=== PATIENT | female | born 1990 | race Caucasian/White ===

== ENCOUNTER 2019-12-23 15:49 | Outpatient (CLI) | payer OTHER, SELFPAY ==
--- NOTE | ~2019-12-23 | CT_ITS ---
EXAMINATION: CT sinus wo con DATE: 12/23/2019 16:08 INDICATION: Nasal polyps. Asthma. Chronic sinusitis. TECHNIQUE: Computed tomography (CT) of the paranasal sinuses was performed without contrast. Iterativ e reconstruction technique was employed. Exam dose: 282.66 mGy-cm total exam DLP. COMPARISON: 05/20/2011 CT brain FINDINGS: There is rightward deviation of the nasal septum. There is very prominent swelling of the nasal turbinates bilaterally. There is prominent bilateral mi ddle nasal turbinate olga lidia bullosa as well as interlamellar cell. There is extensive opacification o f the left middle nasal turbinate olga lidia bullosa. There is mild mucoperiosteal thickening of the maxillary sinuses including the maxillary ostium bilat erally. There is patchy opacification of ethmoid air cells, primarily anteriorly. The frontal sinuses are wel l-developed and largely normally aerated. There is mild focal mucoperiosteal thickening of both sphenoid sinuses. The mastoid air cells are normally developed and aerated bilaterally. Middle and inner ear apparatus appear normal bilaterally. IMPRESSION: Prominent soft tissue swelling of the nasal turbinates Prominent olga lidia bullosa and interlamellar cell of both middle nasal turbinates, partially opacified on the left Soft tissue thickening of both maxillary ostia Mild mucosal periosteal thickening of both maxillary and sphenoid sinuses and patchy opacification of the ethmoids, primarily anteriorly Reviewed, dictated and finalized at [facility]. Reviewed, dictated and finalized at [facility]. [facility] IMPRESSION: Prominent soft tissue swelling of the nasal turbinates Prominent olga lidia bullosa and interlamellar cell of both middle nasal turbinates , partially opacified on the left Soft tissue thickening of both maxillary ostia Mild mucosal periosteal thickening of both maxillary and sphenoid sinuses and p atchy opacification of the ethmoids, primarily anteriorly
== END 2019-12-23 15:50 ==
LOC: MICIMG 15:53
PROVIDERS: Visit Provider Otolaryngology
DX: J33.9 Nasal polyp, unspecified (principal)
CPT/HCPCS: 70486

== ENCOUNTER → 2021-01-18 01:56 | Outpatient (CLI) | payer OTHER, SELFPAY ==
[2021-01-19 08:28] LABS: SARS-CoV-2 RNA PCR Negative
== END ==
PROVIDERS: PCP Family Medicine; Visit Provider Otolaryngology
DX: Z01.812 Encounter for preprocedural laboratory examination (principal); Z20.822 Contact with and (suspected) exposure to COVID-19
CPT/HCPCS: C9803; U0003; U0005

== ENCOUNTER 2021-01-21 01:28 | Day surgery (SDC) | payer OTHER, SELFPAY ==
[2021-01-15 07:58] VITALS: BMI 40.0
[2021-01-21] VITALS (8 sets, daily range): BP systolic 116–150; BP diastolic 59–92; PULSE 68–76; RESP 10–16; TEMP 36.3–36.7; O2SAT 96–100
--- NOTE | 2021-01-21 08:32 | WPDHPUPDATE1 ---
History and Physical Update Update Date/Time: 01/21/21 08:32 History and Physical has been reviewed, including an updated exam of the patient. There are NO changes in the patient's condition. Risks, benefits, and alternatives have been discussed and questions answered. Patient agrees to proceed with procedure.
--- NOTE | 2021-01-21 08:44 | WPDANESEPPF ---
Anes - Initial Pre Proc Eval Procedure: Operation Date: 01/21/21 09:45 Proposed Procedures p Bilateral Frontal Sinusotomy, Bilateral Total Ethmoidectomy, Bilateral Sphenoidotomy, Bilateral Maxillary Antrostomy, Bilateral Turbinate Reduction, Bilateral Leisa Bullosa Reduction, CT Guided Fusion Protocol - Jae Rincon MD s Septoplasty - Jae Rincon MD Date/Time: 01/21/21 08:44 Surgeon: Jae Rincon MD Pre Op Diagnosis: Chronic Maxillary Sinusitis Patient Data Age: 30 Gender: F Height: 5 ft 7 in Weight: 115.9 kg Allergies Allergy/AdvReac Type Severity Reaction Status Date / Time No Known Allergies Allergy Verified 01/21/21 08:05 Home Medications Medication Instructions Recorded Confirmed Type albuterol sulfate 2 inh INHALATION BID PRN 01/15/21 01/15/21 History buspirone 15 mg PO BID 01/15/21 01/21/21 History citalopram 40 mg PO DAILY 01/15/21 01/21/21 History fluticasone propion-salmeterol 1 inh INHALATION BID 01/15/21 01/21/21 History [Wixela Inhub] loratadine [Claritin] 10 mg PO DAILY 01/15/21 01/21/21 History Patient hx anesthesia problems: none Family hx anesthesia problems: none [facility] Past Medical History Medical History Asthma Depression Morbid obesity Social History Social History Smoking status: Never smoker Alcohol intake: never Living arrangements: with family Spiritual care concerns: No Anes - Eval Final PreProcedure Day of Procedure 01/21/21 08:44 Patient weight: morbidly obese Heart: regular rate and rhythm Lungs: clear to auscultation Airway: Mallampati scale class II Neurological: alert and oriented Last oral intake: >/= 8 hours ASA classification: III Emergent: no Anesthetic plan: proceed Anesthesia type and monitoring: general ETT and standard monitoring Informed Consent: The patient's anesthetic plan and its attendant risks and benefits were discussed with the patient/family/POA. Questions were solicited and answers provided to the satisfaction of the patient/family/POA.
[2021-01-21] MEDS: ACETAMINOPHEN 500 MG TABLET 1000 MG PO (08:56)
[2021-01-21] MEDS: SCOPOLAMINE 1.5 MG PATCH TRANSDERM (08:57)
[2021-01-21] MEDS: LACTATED RINGERS 1,000 ML 30 ML IV CONT ×2 (09:04→11:35)
[2021-01-21] MEDS: OXYMETAZOLINE HCL 0.05% NAS 15 ML BTL (*BKC) 1 SPRAY NASAL (09:08)
[2021-01-21] MEDS: ceFAZolin 2 GM/D5W 50 ML 2 GM/50 ML BAG IVPB (09:40)
[2021-01-21] MEDS: LIDO 1%/EPINEPHRINE 1:100,000 50 ML VIAL INFILTRATE (09:49)
--- NOTE | 2021-01-21 11:26 | PM.PROC ---
Procedure Note - Detailed Date of procedure: 01/21/21 Pre-op diagnosis: Chronic Maxillary Sinusitis Chronic pansinusitis with polyposis Post-op diagnosis: same Procedure performed: Bilateral frontal sinusotomy, total ethmoidectomy, sphenoidotomy with tissue removal, maxillary antrostomy with tissue removal, image guided surgery Description of procedure: On the date of procedure the patient was met in the preoperative area and risk and benefits of the procedure reviewed with the patient as documented in the H&P and they elected to proceed with surgery. Patient was brought back to the operating room by the anesthesia team and underwent general endotracheal anesthesia. Once an adequate plane of anesthesia was obtained a timeout was performed to assure the patient identification the patient here to be performed were correct. They were.The patient was then prepped and draped in the normal fashion for endoscopic sinus surgery. The diffusion image guidance system was calibrated and used for the entire case. Afrin-soaked pledgets were placed in the nasal cavities bilaterally. The entire case was performed under endoscopic visualization. Nasal endoscopy was performed at the beginning of the case. 1% lidocaine with 1:100,000 epinephrine was then injected into the root of the middle turbinate and lateral nasal wall. Attention was first directed towards the right side. Severe polyp recurrence was noted. The polyps were removed using microdebrider all the way through the maxillary and ethmoid sinuses. Infection and inspissated mucous removed from the maxillary sinus. Next, the sphenoid sinus was identified and the atrostomy was widened using mushroom punch and microdebrided. The sphenoid was completely infected and impacted and required copious irrigation to clear. Once removed, attention wsa directed to the frontal sinus where sinusotomy was performed under image guidance. Resdiual ethmoid bone was carefully removed using microdebrider and blakesly forceps. Lastly, the middle turbinate was resected using curved turbinate scissors. The stump of the turbinate was then cauterized using suction bovie electrocautery. Afrin pledgets were placed. Next, The left maxillary antrostomy, ethmoidectomy and sphenoidotomy were carried out in identical fashion with findings of gross polyp disease throughout. Upon completion of these portions of the procedure, the frontal recess was identified, with gross polyp disease obstructing and removed. Image guided seeker confirmed proper identification of the frontal recess. With all sinuses opened and no remaining polyp disease appreciated, nasopore packing was placed in the ethmoid acvities bilaterally. Hemostasis was ensured. No clinical evidence of CSF leak. At this point, the procedure was concluded. Care the patient was transferred back to the anesthesia team and the patient was awoke in the operating room and transferred back to the PACU in stable condition. Jae Rincon M.D. Anesthesia: [facility] Surgeon: Jae Rincon MD Estimated blood loss (mL): 200 Drains: No Packing: Yes (nasopore bilaterally) Pathology: none sent Complications: None Condition: stable Disposition: same day Findings: Severe bilateral polyp recurrence
[2021-01-21] MEDS: fentaNYL CITRATE INJ (*CRX) 100 MCG/2 ML VIAL 25 MCG IV PUSH ×3 (11:52→12:10)
[2021-01-21] MEDS: oxyCODONE HCL (*CRX) 5 MG TAB IR PO (12:51)
== END 2021-01-21 13:39 | disposition home or self-care (01) ==
PROVIDERS: PCP Family Medicine; Visit Provider Otolaryngology
PROC: (CPT 31253; principal; 2021-01-21 09:45)
DX: J32.0 Chronic maxillary sinusitis (principal); J32.4 Chronic pansinusitis; J33.8 Other polyp of sinus; J45.909 Unspecified asthma, uncomplicated; F32.9 Major depressive disorder, single episode, unspecified; E66.01 Morbid (severe) obesity due to excess calories; Z68.41 Body mass index [BMI] 40.0-44.9, adult
CPT/HCPCS: 31253; 31259; 31267; 61782; A9270; C9803; J0330; J0690; J1100; J2250; J2405; J2704; J3010; J7120; U0003; U0005

== ENCOUNTER 2021-02-20 20:22 | Emergency (ER) | payer OTHER, SELFPAY ==
[2021-02-20 20:24] VITALS: BP 130/97; PULSE 71; RESP 20; TEMP 36.4; O2SAT 98
[2021-02-20] MEDS: MORPHINE SULFATE (*CRX) 4 MG/ML INJ IV PUSH (21:21)
[2021-02-20] MEDS: ONDANSETRON INJ 4 MG/2 ML VIAL IV PUSH (21:21)
[2021-02-20] MEDS: SODIUM CHLORIDE 0.9% IV 1,000 ML 999 ML IV CONT (21:23)
[2021-02-20 21:26] LABS: Basophils Percent Auto 0.6 % (0.2-1.2); Eosinophils Absolute Auto 0.2 K/mm3 (0-0.3); Eosinophils Percent Auto 3.1 % (0-4.4); Hematocrit 38.1 % (37.0-47.0); Hemoglobin 13.2 g/dL (12.0-15.0); Immature Granulocyte Absolute 0.02 K/mm3 (0.00-0.031); Immature Granulocyte Percent A 0.3 % (0-0.5); Mean Corpuscular HGB Conc 34.6 g/dl (32-36); Mean Corpuscular Hemoglobin 30.8 pg (26-34); Mean Corpuscular Volume 88.8 fl (80-100); Mean Platelet Volume 10.6 fl (7.4-10.4); Monocytes Absolute Auto 0.6 K/mm3 (0.1-0.6); Monocytes Percent Auto 8.2 % (2.6-8.5); Neutrophils Absolute Auto 3.8 K/mm3 (1.3-6.7); Neutrophils Percent Auto 55.8 % (45.5-73.1); Platelet Count Result 251 k/mm3 (150-375); Red Blood Count 4.29 M/mm3 (4.2-5.4); Red Cell Distribution Width 11.8 % (11.5-14.5); White Blood Count 6.9 K/mm3 (4.5-10.0)
[2021-02-20 21:38] LABS: Anion Gap 7 mmol/L (8-16); Blood Urea Nitrogen 16 mg/dL (7-17); Calcium 9.8 mg/dL (8.4-10.2); Carbon Dioxide 28 mmol/L (22-30); Chloride 102 mmol/L (98-107); Estimated CRCL calculation 148 ml/min; Estimated Glomerular Filt Rate > 60; Glucose 86 mg/dL (65-105); Potassium 3.8 mmol/L (3.4-5.0); Sodium 137 mmol/L (137-145)
--- NOTE | 2021-02-20 21:45 | ED.HA ---
HPI - Headache General Chief Complaint: Headache Stated Complaint: headache Time Seen by Provider: 02/20/21 20:58 History of Present Illness HPI Narrative: Patient is a 30-year-old female who presents ER with frontal headache. Began about 20 minutes prior to arrival. Reports it feels like a pressure in front of her head. After it began it slowly increased in intensity. Is worsened by noises and bright lights. Feels better by closing her eyes and applying pressure to the front of her head. She took 800 to 1000 mg of ibuprofen prior to arrival. She reports 4 days ago she had a fever 104 ?F. She obtained a Covid swab which was negative. Patient recently had sinus surgery in the last month by Dr. Rincon. She was seen in his office this week and he removed some stents from her nose. Had not been having any purulent drainage from her nose. No change in vision or hearing. Patient also reports history of brain cyst that was diagnosed 10 years ago that she has not followed up on. Denies chronic headaches. Related Data Home Medications Medication Instructions Recorded Confirmed albuterol sulfate 2 inh INHALATION BID PRN 01/15/21 01/15/21 buspirone 15 mg PO BID 01/15/21 01/21/21 citalopram 40 mg PO DAILY 01/15/21 01/21/21 fluticasone propion-salmeterol 1 inh INHALATION BID 01/15/21 01/21/21 [Wixela Inhub] loratadine [Claritin] 10 mg PO DAILY 01/15/21 01/21/21 dupilumab [Dupixent Syringe] 200 mg SUBCUT ONCE 02/20/21 Allergies Allergy/AdvReac Type Severity Reaction Status Date / Time No Known Allergies Allergy Verified 02/20/21 20:46 Review of Systems Constitutional: Constitutional: Denies chills and Reports fever(s) Eyes: Eyes: Denies change in vision and Reports photophobia ENT: Denies nasal congestion and Denies sore throat Respiratory: Respiratory: Denies cough and Denies dyspnea Gastrointestinal: Gastrointestinal: Denies abdominal pain, Denies nausea and Denies vomiting Neurologic: Reports headache(s), Denies focal weakness and Denies numbness PMFSH Past Medical History Medical History (Updated 02/20/21 @ 22:32 by Manjit Anderson MD) Asthma Depression Morbid obesity Surgical History Surgical History (Updated 02/20/21 @ 21:47 by Manjit Anderson MD) H/O sinus surgery Social History Social History Smoking status: Never smoker Alcohol intake: never Gender identity (if verbalized by the patient): Female Sexual Orientation (if Verbalized by the Patient): Straight or Heterosexual Spiritual care concerns: No Exam Narrative: Exam Narrative: GENERAL: Well-appearing, well-nourished, and in no acute distress. HEAD: Normocephalic, atraumatic. ENT: TMs normal bilaterally. No frontal/maxillary sinus tenderness CHEST: Clear to auscultation. No respiratory distress. HEART: Regular rate and rhythm. Normal peripheral pulses. EXTREMITIES: Normal range of motion. No edema. NEURO: Alert and oriented x3. PSYCH: Normal mood and affect. Course Course Emergency Course: BERMUDEZ resolved with morphine. D/c. Vital Signs Vital signs: Vital Signs Temperature 97.6 F 02/20/21 20:24 Pulse Rate 71 02/20/21 20:24 Respiratory Rate 20 02/20/21 20:24 Blood Pressure 130/97 H 02/20/21 20:24 Pulse Oximetry 98 02/20/21 20:24 Temperature 97.6 F 02/20/21 20:24 Pulse Rate 71 02/20/21 20:24 Respiratory Rate 20 02/20/21 20:24 Blood Pressure 130/97 H 02/20/21 20:24 Pulse Oximetry 98 02/20/21 20:24 MDM - Headache Lab Data Result diagrams: 02/20/21 21:19 02/20/21 21:19 Labs: Lab Results 02/20/21 02/20/21 Range/Units 21:19 21:19 WBC 6.9 (4.5-10.0) K/mm3 RBC 4.29 (4.2-5.4) M/mm3 Hgb 13.2 (12.0-15.0) g/dL Hct 38.1 (37.0-47.0) % MCV 88.8 (80-100) fl MCH 30.8 (26-34) pg MCHC 34.6 (32-36) g/dl RDW 11.8 (11.5-14.5) % Plt Count 251 (150-375) k/mm3 MP
[2021-02-20 22:41] VITALS: BP 128/86; PULSE 72; RESP 16; TEMP 36.3; O2SAT 99
== END 2021-02-20 22:42 | disposition home or self-care (01) ==
PROVIDERS: Emergency Provider Emergency Medicine; PCP Family Medicine
DX: R51.9 Headache, unspecified (principal); J45.909 Unspecified asthma, uncomplicated; F32.9 Major depressive disorder, single episode, unspecified; E66.01 Morbid (severe) obesity due to excess calories; Z68.39 Body mass index [BMI] 39.0-39.9, adult
CPT/HCPCS: 36415; 80048; 85025; 96361; 96374; 96375; 99284; J2270; J2405; J7030